=== PATIENT | male | born 1945 | race Caucasian/White ===

== ENCOUNTER 2020-03-17 21:35 | Inpatient (IN) | payer MEDICARE, OTHER ==
[2020-03-18 01:10] VITALS: BP 149/87
[2020-03-18] MEDS ORDERED: Magnesium Hydroxide (MOM) 30 mL UDC PO PRN (01:12)
[2020-03-18] MEDS ORDERED: Maalox 30 mL Cup PO PRN (01:12)
--- NOTE | 2020-03-18 07:57 | Psychiatric Evaluation ---
DATE OF SERVICE: PSYCHIATRIC INITIAL EVALUATION AND MENTAL STATUS EXAM AGE: 75. SEX: Male. PHYSICIAN: Dr. Adam. CHIEF COMPLAINT: Confusion. HISTORY OF PRESENT ILLNESS: The patient is a 75-year-old male who was placed on 5150 hold and evaluated in [facility] and then transferred to [place]. Apparently, the patient's daughter said that the patient suffers from Alzheimer disease and he cannot recognize his family. The patient was aggressive. The patient also was walking into traffic in a confused state in a busy street. The patient was also hitting himself. The patient's family was not able to control the patient and the patient was brought into the hospital. Chart reviewed and the patient interviewed. Also discussed the patient's condition with the staff and reviewed records and labs. The patient speaks Haitian. The patient is actively hallucinating and laughing inappropriately and talking to himself. He has been restless and at times seems to be irritable. The patient was also talking to himself during my interview and was not able to answer any of my questions coherently. PAST PSYCHIATRIC HISTORY: The patient has history of dementia. PAST MEDICAL HISTORY: The patient has no major medical problems and not taking any medications for any reason. SOCIAL HISTORY: The patient lives with his family. Daughter is basically taking care of him. No known alcohol or any street drug use. ALLERGIES: No known allergies. MENTAL STATUS EXAMINATION: The patient appears slightly older than his stated age. Anxious. Flat affect. Irritable moods. Easily agitated. The patient is unable to answer any of my questions coherently because of dementia and confusion. The patient did not answer question regarding hallucinations or delusions, but actively responding to stimuli. The patient did not answer question regarding suicide or homicide. The patient is alert, but seems to be disoriented to time, place, person and situation. Impaired immediate, recent and remote memories and he was not able to even saying his date. Poor insight and poor judgment. He does not know why he is in the hospital and he was walking into traffic. ASSESSMENT: PRIMARY DIAGNOSES: Dementia, severe, with psychotic feature and behavioral disturbances. TREATMENT PLAN: We will start the patient on Abilify. We will start individual as well as milieu psychotherapy. We will also monitor psychotropic medications. ESTIMATED LENGTH OF STAY: 5-7 days. PATIENT'S STRENGTHS AND WEAKNESSES: The patient is having supportive family. Weaknesses are his dementia and his inability to care for himself and also his poor judgment and walking into traffic. AFTER DISCHARGE PLANS: The patient most probably will return to his family unless placement will be an issue. Outpatient treatment and followup will continue as an outpatient. [facility]# [id number]
[2020-03-18] MEDS: Multivitamin Tab PO SCH (08:45)
--- NOTE | 2020-03-18 13:49 | History & Physical ---
ADMIT DATE: 03/18/2020 HISTORY OF PRESENT ILLNESS: This is a 75-year-old male with advanced Alzheimer's, who was brought in for agitation. The patient was being verbally abusive. The patient was running on the streets and was a danger to self and others. At this time, the patient denies any nausea, vomiting, abdominal pain, or diarrhea. No rectal bleeding. PAST MEDICAL HISTORY: 1. Kidney cancer. 2. Hypertension. SURGICAL HISTORY: None. MEDICATIONS: List reviewed. ALLERGIES: None. SOCIAL HISTORY: Tobacco, IV drugs, ETOH negative. PHYSICAL EXAMINATION: VITAL SIGNS: Temperature is 97.5, pulse 92, respirations 18, blood pressure 150/97, satting 98% on room air. HEENT: Normocephalic, atraumatic head exam. NECK: Supple. CARDIOVASCULAR: Regular rate and rhythm. LUNGS: Decreased breath sounds. ABDOMEN: Soft, nontender. EXTREMITIES: No edema, cyanosis or clubbing. NEUROLOGIC: Cranial nerve exam grossly intact, although the patient was very difficult in terms of cooperation. ASSESSMENT AND PLAN: 1. Kidney cancer. 2. Hypertension. 3. Alzheimer's. The patient will be medically managed along with the psychiatrist. We will get a COVID-19 test to rule out COVID. The patient will get CBC, CMP, TSH, B12. JOB# [id number]
[2020-03-18 15:53] LABS: EOSINOPHILS % (AUTO) 0.4 % (0-4); HEMATOCRIT 42.1 % (36-54); HEMOGLOBIN 13.9 g/dL (14.0-18.0); LYMPHOCYTES % (AUTO) 22.4 % (20.5-51.5); MEAN CORPUSCULAR HEMOGLOBIN 34 pg (27-31); MEAN CORPUSCULAR HGB CONC 33 % (32-36); MEAN CORPUSCULAR VOLUME 103 fL (79.0-98.0); MONOCYTES % (AUTO) 5.1 % (1.7-9.3); PLATELET COUNT 133 K/uL (130-430); RED BLOOD COUNT 4.08 MIL/uL (4.2-6.2); RED CELL DISTRIBUTION WIDTH 12.6 % (9.0-15.0); WHITE BLOOD COUNT 6.2 K/uL (4.8-10.8)
[2020-03-18 15:54] LABS: % NEUTROPHILS 71.4 % (40-70); BASOPHILS % (AUTO) 0.7 % (0.0-2.0); LYMPHOCYTES # (AUTO) 1.4 K/uL (1.0-5.5); MONOCYTES # (AUTO) 0.4 K/uL (0.0-1.0); NEUTROPHILS # (AUTO) 4.4 K/uL (1.8-7.7)
[2020-03-18 16:46] LABS: CHOLESTEROL 159 mg/dL (<200); LDL CHOLESTEROL 95 mg/dL (0-129); TRIGLYCERIDES 39 mg/dL (30-150)
--- NOTE | 2020-03-19 07:05 | Progress Notes ---
DATE: 03/19/2020 SUBJECTIVE: A 75-year-old male placed on a hold, coming from [place]. The patient's daughter said that he suffers from Alzheimer disease, cannot recognize his family, aggressive, walking into traffic, confused, was also hitting himself. On [id number], the patient is confused, not making much sense, does not know why he is here or the year or the month. He tells me he is comfortable and then starts laughing to himself, acting strange, making some odd comments. Slept comfortably for about 5 hours, preoccupied, requiring some prompting and encouragement when providing care, AO to name only, withdrawn. Medications were reviewed. Labs were reviewed. Vitals were reviewed. In terms of his medical history, he has a history of right kidney cancer over 5 years ago. 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 He also has Alzheimer's disease. Takes Ativan at home. ASSESSMENT: A 75-year-old male with ongoing safety concerns, concerns he may strike out at others, wander away. PLAN: We will continue to monitor. Continue dosing of Abilify, Ativan, ongoing symptoms, safety concerns. JOB# [id number]
[2020-03-19] MEDS: Multivitamin Tab PO SCH (08:51)
--- NOTE | 2020-03-20 07:04 | Progress Notes ---
DATE: 03/20/2020 SUBJECTIVE: A 75-year-old male placed on a hold, coming in from [place]. The patient is with Alzheimer dementia, unable to recognize family, more aggressive, confused. He was apparently also hitting himself. On exam, the patient is pretty confused on exam when I attempt to speak with him, but he only can tell me his name, not really making much sense, making some odd comments, laughing to self, seems preoccupied. Otherwise, he is calm this morning per staff. AO to name only walking back and forth in the room, able to make some of his basic needs known, confused, forgetful, impulsive, unpredictable. Following simple commands. Medications reviewed. Labs reviewed. Vitals were reviewed. ASSESSMENT: A 75-year-old male who remains impulsive, unpredictable, confused, but has been generally calm over the past 24 hours. Currently on a small dose of Abilify. We will also recommend adding Namenda to his regimen. JOB# [id number]
[2020-03-20] MEDS: Multivitamin Tab PO SCH (08:44)
[2020-03-21] MEDS: Multivitamin Tab PO SCH (08:26)
--- NOTE | 2020-03-21 17:31 | Internal Medicine Prog Note ---
Internal Medicine Subjective - Subjective Service Date: 03/21/20 (no fevers, no cough, no sob) Patient seen and examined:: without staff Patient is:: awake Per staff patient has:: no adverse event, no episodes of fall Internal Medicine Objective - Results Result Diagrams: 03/18/20 13:25 Recent Labs: Laboratory Last Values WBC 6.2 K/uL (4.8-10.8) 03/18/20 13:25 RBC 4.08 MIL/uL (4.2-6.2) L 03/18/20 13:25 Hgb 13.9 g/dL (14.0-18.0) L 03/18/20 13:25 Hct 42.1 % (36-54) 03/18/20 13:25 MCV 103 fL (79.0-98.0) H 03/18/20 13:25 MCH 34 pg (27-31) H 03/18/20 13:25 MCHC 33 % (32-36) 03/18/20 13:25 RDW 12.6 % (9.0-15.0) 03/18/20 13:25 Plt Count 133 K/uL (130-430) 03/18/20 13:25 MPV 9.4 fl (7.4-10.4) 03/18/20 13:25 Neut % (Auto) 71.4 % (40-70) H 03/18/20 13:25 Lymph % (Auto) 22.4 % (20.5-51.5) 03/18/20 13:25 [place] % (Auto) 5.1 % (1.7-9.3) 03/18/20 13:25 Eos % (Auto) 0.4 % (0-4) 03/18/20 13:25 Baso % (Auto) 0.7 % (0.0-2.0) 03/18/20 13:25 Neut # (Auto) 4.4 K/uL (1.8-7.7) 03/18/20 13:25 Lymph # (Auto) 1.4 K/uL (1.0-5.5) 03/18/20 13:25 [place] # (Auto) 0.4 K/uL (0.0-1.0) 03/18/20 13:25 Eos # (Auto) 0.0 K/uL (0.0-0.4) 03/18/20 13:25 Baso # (Auto) 0.0 K/uL (0.0-0.2) 03/18/20 13:25 Triglycerides 39 mg/dL (30-150) 03/18/20 13:25 Cholesterol 159 mg/dL (<200) 03/18/20 13:25 LDL Cholesterol 95 mg/dL (0-129) 03/18/20 13:25 HDL Cholesterol 57 mg/dL (>45) 03/18/20 13:25 TSH 1.07 uIU/ml (0.34-5.60) 03/18/20 13:25 Coronavirus (PCR) Negative (Negative) 03/18/20 10:00 - Physical Exam Vitals and I&O: Vital Signs Temp 99 F 03/21/20 15:28 Pulse 64 03/21/20 15:28 Resp 18 03/21/20 15:28 BP 103/69 03/21/20 15:28 Pulse Ox 100 03/21/20 15:28 Intake & Output 03/20/20 03/21/20 03/21/20 18:59 06:59 18:59 Intake Total 900 680 Balance 900 680 Intake: Oral 900 680 Other: # Voids 4 2 # Bowel Movements 1 0 Active Medications: Current Medications Acetaminophen (Tylenol) 650 mg PO Q4H PRN PRN Reason: Pain (Mild 1-3) Stop: 05/17/20 01:11 Last Admin: 03/20/20 20:46 Dose: 650 mg Acetaminophen (Tylenol) 650 mg PO Q4H PRN PRN Reason: temp above 100 Stop: 05/17/20 01:21 Last Admin: 03/19/20 21:11 Dose: 650 mg Al Hydrox/Mg Hydrox/Simethicone (Maalox) 30 ml PO Q4HR PRN PRN Reason: GI DISTRESS Stop: 05/17/20 01:11 Aripiprazole (Abilify) 2 mg PO DAILY STACI; Protocol Stop: 05/17/20 09:59 Last Admin: 03/21/20 08:26 Dose: 2 mg Lorazepam (Ativan) 0.5 mg PO Q4HR PRN; Protocol PRN Reason: Anxiety Stop: 04/17/20 01:11 Last Admin: 03/21/20 08:26 Dose: 0.5 mg Magnesium Hydroxide (Milk Of Magnesia) 30 ml PO HS PRN PRN Reason: Constipation Memantine (Namenda) 5 mg PO DAILY [facility] Stop: 05/19/20 08:59 Last Admin: 03/21/20 08:26 Dose: 5 mg Multivitamins/Vitamin C (Theragran) 1 tab PO DAILY STACI Stop: 05/17/20 08:59 Last Admin: 03/21/20 08:26 Dose: 1 tab General: weak HEENT: NC/AT, PERRLA Neck: Supple Lungs: CTAB Cardiovascular: RRR, Normal S1, Normal S2 Abdomen: soft Extremities: clear Internal Medicine Assmt/Plan - Assessment Assessment: 1 HTN 2. Kidney cancer - Plan Plan: check covid-19 continue dementia meds d/w r.n. reviewed complete medical records
--- NOTE | 2020-03-22 00:06 | Progress Notes ---
DATE: 03/21/2020 SUBJECTIVE: Chart reviewed and the patient interviewed. Also discussed the patient's condition with the staff and reviewed records and labs. The patient is still confused. The patient also is still restless and seems to be preoccupied. The patient also is oriented only to his name. He also is still anxious and needs lots of redirections. He also gets agitated and aggressive when staff trying to help him with his ADLs. Otherwise, the patient is compliant with taking Abilify 2 mg every day with no side effects. ASSESSMENT: The patient is still agitated and still needs close monitoring. TREATMENT PLAN GOALS: COVID test came back negative. We will continue Abilify and the Namenda. Also, we will continue to work on his irritability and his anger and mood swings and continue to follow up. JOB# [id number]
[2020-03-22] MEDS: Multivitamin Tab PO SCH (08:21)
--- NOTE | 2020-03-22 10:55 | Progress Notes ---
DATE: PSYCHIATRIC PROGRESS NOTE SUBJECTIVE: Chart reviewed and the patient interviewed. Also discussed the patient's condition with the staff and reviewed records and labs. The patient continued to be confused and anxious. The patient also is still restless and still needs lots of redirections. The patient also still have difficulty with personal hygiene and getting agitated and aggressive when staff tries to help him with his ADLs. Otherwise, the patient is compliant with taking his medications with no side effects of medications. ASSESSMENT: The patient is still agitated and is still psychotic. TREATMENT PLAN: Continue to monitor his behavior and his condition closely. Also, continue to work on his impulse control and his irritability and continue to follow up. JOB# [id number]
--- NOTE | 2020-03-22 14:45 | Internal Medicine Prog Note ---
Internal Medicine Subjective - Subjective Service Date: 03/22/20 Patient seen and examined:: without staff (no fevers no cough no chest pain no sob) Patient is:: awake Per staff patient has:: no adverse event, no episodes of fall Internal Medicine Objective - Results Result Diagrams: 03/18/20 13:25 Recent Labs: Laboratory Last Values WBC 6.2 K/uL (4.8-10.8) 03/18/20 13:25 RBC 4.08 MIL/uL (4.2-6.2) L 03/18/20 13:25 Hgb 13.9 g/dL (14.0-18.0) L 03/18/20 13:25 Hct 42.1 % (36-54) 03/18/20 13:25 MCV 103 fL (79.0-98.0) H 03/18/20 13:25 MCH 34 pg (27-31) H 03/18/20 13:25 MCHC 33 % (32-36) 03/18/20 13:25 RDW 12.6 % (9.0-15.0) 03/18/20 13:25 Plt Count 133 K/uL (130-430) 03/18/20 13:25 MPV 9.4 fl (7.4-10.4) 03/18/20 13:25 Neut % (Auto) 71.4 % (40-70) H 03/18/20 13:25 Lymph % (Auto) 22.4 % (20.5-51.5) 03/18/20 13:25 [place] % (Auto) 5.1 % (1.7-9.3) 03/18/20 13:25 Eos % (Auto) 0.4 % (0-4) 03/18/20 13:25 Baso % (Auto) 0.7 % (0.0-2.0) 03/18/20 13:25 Neut # (Auto) 4.4 K/uL (1.8-7.7) 03/18/20 13:25 Lymph # (Auto) 1.4 K/uL (1.0-5.5) 03/18/20 13:25 [place] # (Auto) 0.4 K/uL (0.0-1.0) 03/18/20 13:25 Eos # (Auto) 0.0 K/uL (0.0-0.4) 03/18/20 13:25 Baso # (Auto) 0.0 K/uL (0.0-0.2) 03/18/20 13:25 Triglycerides 39 mg/dL (30-150) 03/18/20 13:25 Cholesterol 159 mg/dL (<200) 03/18/20 13:25 LDL Cholesterol 95 mg/dL (0-129) 03/18/20 13:25 HDL Cholesterol 57 mg/dL (>45) 03/18/20 13:25 TSH 1.07 uIU/ml (0.34-5.60) 03/18/20 13:25 Coronavirus (PCR) Negative (Negative) 03/18/20 10:00 - Physical Exam Vitals and I&O: Vital Signs Temp 97.7 F 03/22/20 14:00 Pulse 63 03/22/20 14:00 Resp 20 03/22/20 14:00 BP 115/72 03/22/20 14:00 Pulse Ox 97 03/22/20 14:00 Intake & Output 03/21/20 03/22/20 03/22/20 18:59 06:59 18:59 Intake Total 420 Balance 420 Intake: Oral 420 Other: # Voids 3 # Bowel Movements 0 Active Medications: Current Medications Acetaminophen (Tylenol) 650 mg PO Q4H PRN PRN Reason: Pain (Mild 1-3) Stop: 05/17/20 01:11 Last Admin: 03/22/20 14:15 Dose: 650 mg Acetaminophen (Tylenol) 650 mg PO Q4H PRN PRN Reason: temp above 100 Stop: 05/17/20 01:21 Last Admin: 03/19/20 21:11 Dose: 650 mg Al Hydrox/Mg Hydrox/Simethicone (Maalox) 30 ml PO Q4HR PRN PRN Reason: GI DISTRESS Stop: 05/17/20 01:11 Aripiprazole (Abilify) 2 mg PO DAILY STACI; Protocol Stop: 05/17/20 09:59 Last Admin: 03/22/20 08:21 Dose: 2 mg Lorazepam (Ativan) 0.5 mg PO Q4HR PRN; Protocol PRN Reason: Anxiety Stop: 04/17/20 01:11 Last Admin: 03/22/20 14:14 Dose: 0.5 mg Magnesium Hydroxide (Milk Of Magnesia) 30 ml PO HS PRN PRN Reason: Constipation Memantine (Namenda) 5 mg PO DAILY STACI Stop: 05/19/20 08:59 Last Admin: 03/22/20 08:21 Dose: 5 mg Multivitamins/Vitamin C (Theragran) 1 tab PO DAILY STACI Stop: 05/17/20 08:59 Last Admin: 03/22/20 08:21 Dose: 1 tab General: weak HEENT: NC/AT, PERRLA Neck: Supple Lungs: CTAB Cardiovascular: RRR, Normal S1, Normal S2 Abdomen: soft Extremities: clear Neurological: no change Internal Medicine Assmt/Plan - Assessment Assessment: 1 HTN 2. Kidney cancer - Plan Plan: await covid results continue dementia meds d/w r.n. reviewed complete medical records Nutritional Asmnt/Malnutr-PDOC - Dietary Evaluation Malnutrition Findings (Please click <Entered> for more info): Nutritional Asmnt/Malnutrition Start: 03/22/20 12: 56 Text: Status: Complete Freq: Protocol: Document 03/22/20 12:56 DENZEL (Rec: 03/22/20 13:00 DENZEL [id number]) Nutritional Asmnt/Malnutrition Patient General Information Nutritional Screening Moderate Risk Diagnosis Psychosis Pertinent Medical Hx/Surgical Hx Kidney cancer, HTN, Alzheimer s, Dementia Subjective Information Pt is a 75-year-old male admitted on 03/17 d/t agitation . Pt is eating an estimated 35 % of meals Per Meal/Nutrition Activity Record. Dietary is currently providing an estimated 2681 kcals and 124 gm Pro, per Pt PO intake this is providing an estimated 938 kcals and 43gm Pro to meet 61% kcal and 35% Pro needs. Per Meal/Nutrition Activity Record , pt. refused breakfast and lunch on 03/21. Pt. is eating 75% or less of meals and eats 50-100% of snacks. Adding Ensure Enlive BID to add calories and protein until pt. is meeting estimated nutritional needs. Anthropometrics HT: 510 WT: 135 LB (61.63 kg) BMI: 19.37 (Normal) GI/ Skin Integrity GI: WNL, Soft, Non-tender BM: 03/20 x1 I/O: 420/Not Noted Skin: Small superficial abrasion to Lt knee Jean Paul: 18 Diet Order: Regular Estimated Energy Needs: ( Geriatric, CBW) 8057-5919 kcals (25-30 kcals/ kg) 65-75 g Pro (1.0-1.2 g/kg) 2771-5822 ml (25-30 ml/kg) Current Diet Order/ Nutrition Support Regular Pertinent Medications Maalox (PRN), MOM (PRN), Theragran Pertinent Labs 03/18: Hgb 13.9 Nutritional Hx/Data Height 1.78 m Height (Calculated Centimeters) 177.8 Current Weight (lbs) 61.235 kg Weight (Calculated Kilograms) 61.2 Weight (Calculated Grams) 22224.0 [place] Body Weight 166 LB (75.45kg) % [place] Body Weight 81 Body Mass Index (BMI) 19.3 Weight Status Approriate GI Symptoms GI Symptoms None Last BM 03/20 x1 Skin Integrity/Comment: Small superficial abrasion to Lt knee Jean Paul: 18 Current %PO Poor (25-49%) Estimated Nutritional Goals BEE in Kcals: Using Current wt Calories/Kcals/Kg 25-30 Kcals Calculated 8361-0260 Protein: Using Current wt Protein g/k.0-1.2 Protein Calculated 65-75 Fluid: ml 1834-9811 ml (25-30 ml/kg) Nutritional Problem 1. Problem Problem Inadequate oral intake Etiology r/t Alzheimers/Dementia causing confusion Signs/Symptoms: aeb pt. eating an estimated 35 % of meals with refusal of meals per Meal/Nutrition Activity Record and [employer] report . Malnutrition Related to Morbid Obesity Malnutrition related to morbid obesity No Intervention/Recommendation Comments 1. Continue regular diet as tolerated. 2. Add Ensure Enlive BID. Expected Outcomes/Goals Expected Outcomes/Goals 1. PO intake to meet >75% of estimated nutritional needs. 2. Monitor PO intake, wt, nutrition related labs, and skin integrity to trend WNL. 3. F/U as moderate risk in 3-5 days, 03/25-03/27.
--- NOTE | 2020-03-23 06:42 | Progress Notes ---
DATE: SUBJECTIVE: Chart was reviewed and the patient interviewed. Also discussed the patient's condition with the staff and reviewed records and labs. The patient remains in irritable mood. The patient also is still agitated and is still aggressive at times. The patient also is interacting more with peers and with others, but still needs lots of redirections. The patient also is still in angry mood and confused. Otherwise, the patient is compliant with taking his medications with no side effects of medications. ASSESSMENT: The patient is still agitated and aggressive and needs close monitoring. TREATMENT PLAN: Continue to monitor his behavior and his condition closely. Also, we will increase Abilify to 5 mg every day and we will increase Namenda to 5 mg twice a day. Also, continue to work on behavior modification and on his irritability and his agitation and impulse control. JOB# [id number]
[2020-03-23] MEDS: Multivitamin Tab PO SCH (08:16)
[2020-03-23 10:45] LABS: A1C 5.2
--- NOTE | 2020-03-23 14:16 | Internal Medicine Prog Note ---
Internal Medicine Subjective - Subjective Service Date: 03/23/20 Patient seen and examined:: without staff Patient is:: awake Per staff patient has:: no adverse event, no episodes of fall Internal Medicine Objective - Results Result Diagrams: 03/18/20 13:25 Recent Labs: Laboratory Last Values WBC 6.2 K/uL (4.8-10.8) 03/18/20 13:25 RBC 4.08 MIL/uL (4.2-6.2) L 03/18/20 13:25 Hgb 13.9 g/dL (14.0-18.0) L 03/18/20 13:25 Hct 42.1 % (36-54) 03/18/20 13:25 MCV 103 fL (79.0-98.0) H 03/18/20 13:25 MCH 34 pg (27-31) H 03/18/20 13:25 MCHC 33 % (32-36) 03/18/20 13:25 RDW 12.6 % (9.0-15.0) 03/18/20 13:25 Plt Count 133 K/uL (130-430) 03/18/20 13:25 MPV 9.4 fl (7.4-10.4) 03/18/20 13:25 Neut % (Auto) 71.4 % (40-70) H 03/18/20 13:25 Lymph % (Auto) 22.4 % (20.5-51.5) 03/18/20 13:25 [place] % (Auto) 5.1 % (1.7-9.3) 03/18/20 13:25 Eos % (Auto) 0.4 % (0-4) 03/18/20 13:25 Baso % (Auto) 0.7 % (0.0-2.0) 03/18/20 13:25 Neut # (Auto) 4.4 K/uL (1.8-7.7) 03/18/20 13:25 Lymph # (Auto) 1.4 K/uL (1.0-5.5) 03/18/20 13:25 [place] # (Auto) 0.4 K/uL (0.0-1.0) 03/18/20 13:25 Eos # (Auto) 0.0 K/uL (0.0-0.4) 03/18/20 13:25 Baso # (Auto) 0.0 K/uL (0.0-0.2) 03/18/20 13:25 Triglycerides 39 mg/dL (30-150) 03/18/20 13:25 Cholesterol 159 mg/dL (<200) 03/18/20 13:25 LDL Cholesterol 95 mg/dL (0-129) 03/18/20 13:25 HDL Cholesterol 57 mg/dL (>45) 03/18/20 13:25 Vitamin B12 182 03/18/20 13:25 TSH 1.07 uIU/ml (0.34-5.60) 03/18/20 13:25 Coronavirus (PCR) Negative (Negative) 03/18/20 10:00 - Physical Exam Vitals and I&O: Vital Signs Temp 98.1 F 03/23/20 05:36 Pulse 56 03/23/20 05:36 Resp 19 03/23/20 05:36 BP 145/89 03/23/20 05:36 Pulse Ox 98 03/23/20 05:36 Intake & Output 03/22/20 03/23/20 03/23/20 18:59 06:59 18:59 Intake Total 800 Balance 800 Intake: Oral 800 Other: # Voids 3 3 # Bowel Movements 0 Active Medications: Current Medications Acetaminophen (Tylenol) 650 mg PO Q4H PRN PRN Reason: Pain (Mild 1-3) Stop: 05/17/20 01:11 Last Admin: 03/22/20 14:15 Dose: 650 mg Acetaminophen (Tylenol) 650 mg PO Q4H PRN PRN Reason: temp above 100 Stop: 05/17/20 01:21 Last Admin: 03/19/20 21:11 Dose: 650 mg Al Hydrox/Mg Hydrox/Simethicone (Maalox) 30 ml PO Q4HR PRN PRN Reason: GI DISTRESS Stop: 05/17/20 01:11 Aripiprazole (Abilify) 5 mg PO DAILY STACI; Protocol Stop: 05/22/20 08:59 Last Admin: 03/23/20 08:15 Dose: 5 mg Lorazepam (Ativan) 0.5 mg PO Q4HR PRN; Protocol PRN Reason: Anxiety Stop: 04/17/20 01:11 Last Admin: 03/23/20 08:16 Dose: 0.5 mg Magnesium Hydroxide (Milk Of Magnesia) 30 ml PO HS PRN PRN Reason: Constipation Memantine (Namenda) 5 mg PO BID STACI Stop: 05/22/20 08:59 Last Admin: 03/23/20 08:16 Dose: 5 mg Multivitamins/Vitamin C (Theragran) 1 tab PO DAILY STACI Stop: 05/17/20 08:59 Last Admin: 03/23/20 08:16 Dose: 1 tab General: weak HEENT: NC/AT, PERRLA Neck: Supple Lungs: CTAB Cardiovascular: RRR, Normal S1, Normal S2 Abdomen: soft Extremities: clear Neurological: no change Internal Medicine Assmt/Plan - Assessment Assessment: 1 HTN 2. Kidney cancer - Plan Plan: await covid results continue dementia meds d/w r.n. reviewed complete medical records Nutritional Asmnt/Malnutr-PDOC - Dietary Evaluation Malnutrition Findings (Please click <Entered> for more info): Nutritional Asmnt/Malnutrition Start: 03/22/20 12: 56 Text: Status: Complete Freq: Protocol: Document 03/22/20 12:56 DENZEL (Rec: 03/22/20 13:00 DENZEL [id number]) Nutritional Asmnt/Malnutrition Patient General Information Nutritional Screening Moderate Risk Diagnosis Psychosis Pertinent Medical Hx/Surgical Hx Kidney cancer, HTN, Alzheimer s, Dementia Subjective Information Pt is a 75-year-old male admitted on 03/17 d/t agitation . Pt is eating an estimated 35 % of meals Per Meal/Nutrition Activity Record. Dietary is currently providing an estimated 2681 kcals and 124 gm Pro, per Pt PO intake this is providing an estimated 938 kcals and 43gm Pro to meet 61% kcal and 35% Pro needs. Per Meal/Nutrition Activity Record , pt. refused breakfast and lunch on 03/21. Pt. is eating 75% or less of meals and eats 50-100% of snacks. Adding Ensure Enlive BID to add calories and protein until pt. is meeting estimated nutritional needs. Anthropometrics HT: 510 WT: 135 LB (61.63 kg) BMI: 19.37 (Normal) GI/ Skin Integrity GI: WNL, Soft, Non-tender BM: 03/20 x1 I/O: 420/Not Noted Skin: Small superficial abrasion to Lt knee Jean Paul: 18 Diet Order: Regular Estimated Energy Needs: ( Geriatric, CBW) 7905-2591 kcals (25-30 kcals/ kg) 65-75 g Pro (1.0-1.2 g/kg) 9042-3464 ml (25-30 ml/kg) Current Diet Order/ Nutrition Support Regular Pertinent Medications Maalox (PRN), MOM (PRN), Theragran Pertinent Labs 03/18: Hgb 13.9 Nutritional Hx/Data Height 1.78 m Height (Calculated Centimeters) 177.8 Current Weight (lbs) 61.235 kg Weight (Calculated Kilograms) 61.2 Weight (Calculated Grams) 64569.0 [place] Body Weight 166 LB (75.45kg) % [place] Body Weight 81 Body Mass Index (BMI) 19.3 Weight Status Approriate GI Symptoms GI Symptoms None Last BM 03/20 x1 Skin Integrity/Comment: Small superficial abrasion to Lt knee Jean Paul: 18 Current %PO Poor (25-49%) Estimated Nutritional Goals BEE in Kcals: Using Current wt Calories/Kcals/Kg 25-30 Kcals Calculated 9779-1475 Protein: Using Current wt Protein g/k.0-1.2 Protein Calculated 65-75 Fluid: ml 3046-6152 ml (25-30 ml/kg) Nutritional Problem 1. Problem Problem Inadequate oral intake Etiology r/t Alzheimers/Dementia causing confusion Signs/Symptoms: aeb pt. eating an estimated 35 % of meals with refusal of meals per Meal/Nutrition Activity Record and ELECTRONIC SYSTEMS TECHNICIAN report . Malnutrition Related to Morbid Obesity Malnutrition related to morbid obesity No Intervention/Recommendation Comments 1. Continue regular diet as tolerated. 2. Add Ensure Enlive BID. Expected Outcomes/Goals Expected Outcomes/Goals 1. PO intake to meet >75% of estimated nutritional needs. 2. Monitor PO intake, wt, nutrition related labs, and skin integrity to trend WNL. 3. F/U as moderate risk in 3-5 days, 03/25-03/27.
[2020-03-24] MEDS: Multivitamin Tab PO SCH (08:45)
--- NOTE | 2020-03-24 13:41 | Internal Medicine Prog Note ---
Internal Medicine Subjective - Subjective Service Date: 03/24/20 Patient seen and examined:: without staff Patient is:: awake Per staff patient has:: no adverse event, no episodes of fall Internal Medicine Objective - Results Result Diagrams: 03/18/20 13:25 Recent Labs: Laboratory Last Values WBC 6.2 K/uL (4.8-10.8) 03/18/20 13:25 RBC 4.08 MIL/uL (4.2-6.2) L 03/18/20 13:25 Hgb 13.9 g/dL (14.0-18.0) L 03/18/20 13:25 Hct 42.1 % (36-54) 03/18/20 13:25 MCV 103 fL (79.0-98.0) H 03/18/20 13:25 MCH 34 pg (27-31) H 03/18/20 13:25 MCHC 33 % (32-36) 03/18/20 13:25 RDW 12.6 % (9.0-15.0) 03/18/20 13:25 Plt Count 133 K/uL (130-430) 03/18/20 13:25 MPV 9.4 fl (7.4-10.4) 03/18/20 13:25 Neut % (Auto) 71.4 % (40-70) H 03/18/20 13:25 Lymph % (Auto) 22.4 % (20.5-51.5) 03/18/20 13:25 [place] % (Auto) 5.1 % (1.7-9.3) 03/18/20 13:25 Eos % (Auto) 0.4 % (0-4) 03/18/20 13:25 Baso % (Auto) 0.7 % (0.0-2.0) 03/18/20 13:25 Neut # (Auto) 4.4 K/uL (1.8-7.7) 03/18/20 13:25 Lymph # (Auto) 1.4 K/uL (1.0-5.5) 03/18/20 13:25 [place] # (Auto) 0.4 K/uL (0.0-1.0) 03/18/20 13:25 Eos # (Auto) 0.0 K/uL (0.0-0.4) 03/18/20 13:25 Baso # (Auto) 0.0 K/uL (0.0-0.2) 03/18/20 13:25 Triglycerides 39 mg/dL (30-150) 03/18/20 13:25 Cholesterol 159 mg/dL (<200) 03/18/20 13:25 LDL Cholesterol 95 mg/dL (0-129) 03/18/20 13:25 HDL Cholesterol 57 mg/dL (>45) 03/18/20 13:25 Vitamin B12 182 03/18/20 13:25 TSH 1.07 uIU/ml (0.34-5.60) 03/18/20 13:25 Coronavirus (PCR) Negative (Negative) 03/18/20 10:00 - Physical Exam Vitals and I&O: Vital Signs Temp 97.5 F 03/24/20 06:31 Pulse 72 03/24/20 06:31 Resp 18 03/24/20 06:31 BP 120/85 03/24/20 06:31 Pulse Ox 99 03/24/20 06:31 Intake & Output 03/23/20 03/24/20 03/24/20 18:59 06:59 18:59 Intake Total 800 120 Balance 800 120 Intake: Oral 800 120 Other: # Voids 3 3 # Bowel Movements 0 Active Medications: Current Medications Acetaminophen (Tylenol) 650 mg PO Q4H PRN PRN Reason: Pain (Mild 1-3) Stop: 05/17/20 01:11 Last Admin: 03/22/20 14:15 Dose: 650 mg Acetaminophen (Tylenol) 650 mg PO Q4H PRN PRN Reason: temp above 100 Stop: 05/17/20 01:21 Last Admin: 03/19/20 21:11 Dose: 650 mg Al Hydrox/Mg Hydrox/Simethicone (Maalox) 30 ml PO Q4HR PRN PRN Reason: GI DISTRESS Stop: 05/17/20 01:11 Aripiprazole (Abilify) 5 mg PO DAILY STACI; Protocol Stop: 05/22/20 08:59 Last Admin: 03/24/20 08:44 Dose: 5 mg Lorazepam (Ativan) 0.5 mg PO Q4HR PRN; Protocol PRN Reason: Anxiety Stop: 04/17/20 01:11 Last Admin: 03/24/20 10:59 Dose: 0.5 mg Magnesium Hydroxide (Milk Of Magnesia) 30 ml PO HS PRN PRN Reason: Constipation Memantine (Namenda) 5 mg PO BID STACI Stop: 05/22/20 08:59 Last Admin: 03/24/20 08:45 Dose: 5 mg Multivitamins/Vitamin C (Theragran) 1 tab PO DAILY STACI Stop: 05/17/20 08:59 Last Admin: 03/24/20 08:45 Dose: 1 tab General: weak HEENT: NC/AT, PERRLA Neck: Supple Lungs: CTAB Cardiovascular: RRR, Normal S1, Normal S2 Abdomen: soft Extremities: clear Neurological: no change Internal Medicine Assmt/Plan - Assessment Assessment: 1 HTN 2. Kidney cancer - Plan Plan: continue dementia meds d/w r.n. reviewed complete medical records Nutritional Asmnt/Malnutr-PDOC - Dietary Evaluation Malnutrition Findings (Please click <Entered> for more info): Nutritional Asmnt/Malnutrition Start: 03/22/20 12: 56 Text: Status: Complete Freq: Protocol: Document 03/22/20 12:56 DENZEL (Rec: 03/22/20 13:00 DENZEL [id number]) Nutritional Asmnt/Malnutrition Patient General Information Nutritional Screening Moderate Risk Diagnosis Psychosis Pertinent Medical Hx/Surgical Hx Kidney cancer, HTN, Alzheimer s, Dementia Subjective Information Pt is a 75-year-old male admitted on 03/17 d/t agitation . Pt is eating an estimated 35 % of meals Per Meal/Nutrition Activity Record. Dietary is currently providing an estimated 2681 kcals and 124 gm Pro, per Pt PO intake this is providing an estimated 938 kcals and 43gm Pro to meet 61% kcal and 35% Pro needs. Per Meal/Nutrition Activity Record , pt. refused breakfast and lunch on 03/21. Pt. is eating 75% or less of meals and eats 50-100% of snacks. Adding Ensure Enlive BID to add calories and protein until pt. is meeting estimated nutritional needs. Anthropometrics HT: 510 WT: 135 LB (61.63 kg) BMI: 19.37 (Normal) GI/ Skin Integrity GI: WNL, Soft, Non-tender BM: 03/20 x1 I/O: 420/Not Noted Skin: Small superficial abrasion to Lt knee Jean Paul: 18 Diet Order: Regular Estimated Energy Needs: ( Geriatric, CBW) 9006-3015 kcals (25-30 kcals/ kg) 65-75 g Pro (1.0-1.2 g/kg) 4268-1157 ml (25-30 ml/kg) Current Diet Order/ Nutrition Support Regular Pertinent Medications Maalox (PRN), MOM (PRN), Theragran Pertinent Labs 03/18: Hgb 13.9 Nutritional Hx/Data Height 1.78 m Height (Calculated Centimeters) 177.8 Current Weight (lbs) 61.235 kg Weight (Calculated Kilograms) 61.2 Weight (Calculated Grams) 53539.0 [place] Body Weight 166 LB (75.45kg) % [place] Body Weight 81 Body Mass Index (BMI) 19.3 Weight Status Approriate GI Symptoms GI Symptoms None Last BM 03/20 x1 Skin Integrity/Comment: Small superficial abrasion to Lt knee Jean Paul: 18 Current %PO Poor (25-49%) Estimated Nutritional Goals BEE in Kcals: Using Current wt Calories/Kcals/Kg 25-30 Kcals Calculated 5836-7737 Protein: Using Current wt Protein g/k.0-1.2 Protein Calculated 65-75 Fluid: ml 8614-7125 ml (25-30 ml/kg) Nutritional Problem 1. Problem Problem Inadequate oral intake Etiology r/t Alzheimers/Dementia causing confusion Signs/Symptoms: aeb pt. eating an estimated 35 % of meals with refusal of meals per Meal/Nutrition Activity Record and COMPUTER FORENSICS ANALYST report . Malnutrition Related to Morbid Obesity Malnutrition related to morbid obesity No Intervention/Recommendation Comments 1. Continue regular diet as tolerated. 2. Add Ensure Enlive BID. Expected Outcomes/Goals Expected Outcomes/Goals 1. PO intake to meet >75% of estimated nutritional needs. 2. Monitor PO intake, wt, nutrition related labs, and skin integrity to trend WNL. 3. F/U as moderate risk in 3-5 days, 03/25-03/27.
--- NOTE | 2020-03-24 16:21 | Progress Notes ---
DATE: SUBJECTIVE: Chart reviewed and the patient interviewed. Also discussed the patient's condition with the staff and reviewed records and labs. The patient is still depressed and anxious. The patient also still has episodes of anger and irritability. The patient wants to be left alone most of the time. He is interacting minimally with others. Otherwise, the patient is compliant with taking medications and no side effects of Abilify or Namenda. ASSESSMENT: The patient still needs close monitoring. TREATMENT PLAN: Continue to monitor his behavior and his condition closely. Also, continue to work on his confusion and irritability. Also, adjusting psychotropic medications and work on discharge plans and on placement issue. JOB# [id number]
[2020-03-25] MEDS: Multivitamin Tab PO SCH (10:46)
--- NOTE | 2020-03-25 15:07 | Internal Medicine Prog Note ---
Internal Medicine Subjective - Subjective Service Date: 03/25/20 Patient seen and examined:: without staff Patient is:: awake Per staff patient has:: no adverse event, no episodes of fall Internal Medicine Objective - Results Result Diagrams: 03/18/20 13:25 Recent Labs: Laboratory Last Values WBC 6.2 K/uL (4.8-10.8) 03/18/20 13:25 RBC 4.08 MIL/uL (4.2-6.2) L 03/18/20 13:25 Hgb 13.9 g/dL (14.0-18.0) L 03/18/20 13:25 Hct 42.1 % (36-54) 03/18/20 13:25 MCV 103 fL (79.0-98.0) H 03/18/20 13:25 MCH 34 pg (27-31) H 03/18/20 13:25 MCHC 33 % (32-36) 03/18/20 13:25 RDW 12.6 % (9.0-15.0) 03/18/20 13:25 Plt Count 133 K/uL (130-430) 03/18/20 13:25 MPV 9.4 fl (7.4-10.4) 03/18/20 13:25 Neut % (Auto) 71.4 % (40-70) H 03/18/20 13:25 Lymph % (Auto) 22.4 % (20.5-51.5) 03/18/20 13:25 [place] % (Auto) 5.1 % (1.7-9.3) 03/18/20 13:25 Eos % (Auto) 0.4 % (0-4) 03/18/20 13:25 Baso % (Auto) 0.7 % (0.0-2.0) 03/18/20 13:25 Neut # (Auto) 4.4 K/uL (1.8-7.7) 03/18/20 13:25 Lymph # (Auto) 1.4 K/uL (1.0-5.5) 03/18/20 13:25 [place] # (Auto) 0.4 K/uL (0.0-1.0) 03/18/20 13:25 Eos # (Auto) 0.0 K/uL (0.0-0.4) 03/18/20 13:25 Baso # (Auto) 0.0 K/uL (0.0-0.2) 03/18/20 13:25 Triglycerides 39 mg/dL (30-150) 03/18/20 13:25 Cholesterol 159 mg/dL (<200) 03/18/20 13:25 LDL Cholesterol 95 mg/dL (0-129) 03/18/20 13:25 HDL Cholesterol 57 mg/dL (>45) 03/18/20 13:25 Vitamin B12 182 03/18/20 13:25 TSH 1.07 uIU/ml (0.34-5.60) 03/18/20 13:25 Coronavirus (PCR) Negative (NOT DETECTD) 03/21/20 20:00 - Physical Exam Vitals and I&O: Vital Signs Temp 98.7 F 03/25/20 14:41 Pulse 79 03/25/20 14:41 Resp 20 03/25/20 14:41 BP 149/77 03/25/20 14:41 Pulse Ox 97 03/25/20 14:41 Intake & Output 03/24/20 03/25/20 03/25/20 18:59 06:59 18:59 Intake Total 240 120 Balance 240 120 Intake: Oral 240 120 Other: # Voids 2 3 # Bowel Movements 0 Stool Characteristics Soft Soft Foamy Foamy Brown Brown Active Medications: Current Medications Acetaminophen (Tylenol) 650 mg PO Q4H PRN PRN Reason: Pain (Mild 1-3) Stop: 05/17/20 01:11 Last Admin: 03/22/20 14:15 Dose: 650 mg Acetaminophen (Tylenol) 650 mg PO Q4H PRN PRN Reason: temp above 100 Stop: 05/17/20 01:21 Last Admin: 03/19/20 21:11 Dose: 650 mg Al Hydrox/Mg Hydrox/Simethicone (Maalox) 30 ml PO Q4HR PRN PRN Reason: GI DISTRESS Stop: 05/17/20 01:11 Aripiprazole (Abilify) 5 mg PO DAILY STACI; Protocol Stop: 05/22/20 08:59 Last Admin: 03/25/20 10:46 Dose: 5 mg Lorazepam (Ativan) 0.5 mg PO Q4HR PRN; Protocol PRN Reason: Anxiety Stop: 04/17/20 01:11 Last Admin: 03/24/20 17:01 Dose: 0.5 mg Magnesium Hydroxide (Milk Of Magnesia) 30 ml PO HS PRN PRN Reason: Constipation Memantine (Namenda) 5 mg PO BID STACI Stop: 05/22/20 08:59 Last Admin: 03/25/20 10:46 Dose: 5 mg Multivitamins/Vitamin C (Theragran) 1 tab PO DAILY STACI Stop: 05/17/20 08:59 Last Admin: 03/25/20 10:46 Dose: 1 tab General: weak HEENT: NC/AT, PERRLA Neck: Supple Lungs: CTAB Cardiovascular: RRR, Normal S1, Normal S2 Abdomen: soft Extremities: clear Neurological: no change Internal Medicine Assmt/Plan - Assessment Assessment: 1 HTN 2. Kidney cancer - Plan Plan: continue dementia meds d/w r.n. reviewed complete medical records Nutritional Asmnt/Malnutr-PDOC - Dietary Evaluation Malnutrition Findings (Please click <Entered> for more info): Nutritional Asmnt/Malnutrition Start: 03/22/20 12: 56 Text: Status: Complete Freq: Protocol: Document 03/22/20 12:56 DENZEL (Rec: 03/22/20 13:00 DENZEL [id number]) Nutritional Asmnt/Malnutrition Patient General Information Nutritional Screening Moderate Risk Diagnosis Psychosis Pertinent Medical Hx/Surgical Hx Kidney cancer, HTN, Alzheimer s, Dementia Subjective Information Pt is a 75-year-old male admitted on 03/17 d/t agitation . Pt is eating an estimated 35 % of meals Per Meal/Nutrition Activity Record. Dietary is currently providing an estimated 2681 kcals and 124 gm Pro, per Pt PO intake this is providing an estimated 938 kcals and 43gm Pro to meet 61% kcal and 35% Pro needs. Per Meal/Nutrition Activity Record , pt. refused breakfast and lunch on 03/21. Pt. is eating 75% or less of meals and eats 50-100% of snacks. Adding Ensure Enlive BID to add calories and protein until pt. is meeting estimated nutritional needs. Anthropometrics HT: 510 WT: 135 LB (61.63 kg) BMI: 19.37 (Normal) GI/ Skin Integrity GI: WNL, Soft, Non-tender BM: 03/20 x1 I/O: 420/Not Noted Skin: Small superficial abrasion to Lt knee Jean Paul: 18 Diet Order: Regular Estimated Energy Needs: ( Geriatric, CBW) 7132-8565 kcals (25-30 kcals/ kg) 65-75 g Pro (1.0-1.2 g/kg) 5100-3868 ml (25-30 ml/kg) Current Diet Order/ Nutrition Support Regular Pertinent Medications Maalox (PRN), MOM (PRN), Theragran Pertinent Labs 03/18: Hgb 13.9 Nutritional Hx/Data Height 1.78 m Height (Calculated Centimeters) 177.8 Current Weight (lbs) 61.235 kg Weight (Calculated Kilograms) 61.2 Weight (Calculated Grams) 15781.0 [place] Body Weight 166 LB (75.45kg) % [place] Body Weight 81 Body Mass Index (BMI) 19.3 Weight Status Approriate GI Symptoms GI Symptoms None Last BM 03/20 x1 Skin Integrity/Comment: Small superficial abrasion to Lt knee Jean Paul: 18 Current %PO Poor (25-49%) Estimated Nutritional Goals BEE in Kcals: Using Current wt Calories/Kcals/Kg 25-30 Kcals Calculated 5961-7676 Protein: Using Current wt Protein g/k.0-1.2 Protein Calculated 65-75 Fluid: ml 6736-4693 ml (25-30 ml/kg) Nutritional Problem 1. Problem Problem Inadequate oral intake Etiology r/t Alzheimers/Dementia causing confusion Signs/Symptoms: aeb pt. eating an estimated 35 % of meals with refusal of meals per Meal/Nutrition Activity Record and EXTRAS CASTING DIRECTOR report . Malnutrition Related to Morbid Obesity Malnutrition related to morbid obesity No Intervention/Recommendation Comments 1. Continue regular diet as tolerated. 2. Add Ensure Enlive BID. Expected Outcomes/Goals Expected Outcomes/Goals 1. PO intake to meet >75% of estimated nutritional needs. 2. Monitor PO intake, wt, nutrition related labs, and skin integrity to trend WNL. 3. F/U as moderate risk in 3-5 days, 03/25-03/27.
--- NOTE | 2020-03-26 03:23 | Progress Notes ---
DATE: 03/25/2020 FOLLOWUP PROGRESS NOTE Case was discussed with staff of the patient, reviewed records. Covering for Dr. Adam. This time admitted on 03/17/2020. The patient was sent home back to Dr. Adam, he is from [facility] and transferred to [facility]. The patient suffers from Alzheimer's and cannot recognize his family. The patient was aggressive. The patient is Nepali speaking. The patient continues to be rambling and says to himself. Continues to have episodes of anger, wants to be left alone. Poor interaction with others. Has been compliant with the medication with no side effects. He is being monitored closely. No side effects with the medication, no sedation, no nausea, no extrapyramidal signs, on Abilify 5 mg daily and Namenda 5 mg twice a day. I will continue to work with the patient in group therapy, milieu therapy, and adjust the medications as needed. JOB# [id number] TORI
[2020-03-26] MEDS: Multivitamin Tab PO SCH (09:30)
--- NOTE | 2020-03-27 07:56 | Progress Notes ---
DATE: SUBJECTIVE: The patient was seen, chart reviewed, and discussed with staff. The patient continues to be very confused confabulating answers, sometimes quite aggressive with poor boundaries. The patient was seen entering and exiting other people's rooms and needing constant redirection. Has, however, been compliant with medications. PLAN: The patient continues to be actively psychotic. It appears that he will require inpatient care center and treatment. We will monitor on a daily basis for response to medications and titrate meds as needed. JOB# [id number]
[2020-03-27] MEDS: Multivitamin Tab PO SCH (08:33)
--- NOTE | 2020-03-27 17:43 | Progress Notes ---
DATE: SUBJECTIVE: The patient was seen, chart reviewed, and discussed with staff. The patient continues to be very confused, seen wandering aimlessly in the hallways and often going into other people's rooms and fall on other patients. The patient has not required any p.r.n. medications, as he is ultimately redirectable. He has also been compliant with his medications, denying any undue side effects. PLAN: The patient continues to be very confused and impulsive, so that he will require inpatient care center and treatment. We will monitor on a daily basis for response to medications and titrate medications as needed. JOB# [id number]
[2020-03-28] MEDS: Multivitamin Tab PO SCH (09:35)
--- NOTE | 2020-03-28 18:49 | Internal Medicine Prog Note ---
Internal Medicine Subjective - Subjective Service Date: 03/28/20 Patient seen and examined:: without staff Patient is:: awake Per staff patient has:: no adverse event, no episodes of fall Internal Medicine Objective - Results Result Diagrams: 03/18/20 13:25 Recent Labs: Laboratory Last Values WBC 6.2 K/uL (4.8-10.8) 03/18/20 13:25 RBC 4.08 MIL/uL (4.2-6.2) L 03/18/20 13:25 Hgb 13.9 g/dL (14.0-18.0) L 03/18/20 13:25 Hct 42.1 % (36-54) 03/18/20 13:25 MCV 103 fL (79.0-98.0) H 03/18/20 13:25 MCH 34 pg (27-31) H 03/18/20 13:25 MCHC 33 % (32-36) 03/18/20 13:25 RDW 12.6 % (9.0-15.0) 03/18/20 13:25 Plt Count 133 K/uL (130-430) 03/18/20 13:25 MPV 9.4 fl (7.4-10.4) 03/18/20 13:25 Neut % (Auto) 71.4 % (40-70) H 03/18/20 13:25 Lymph % (Auto) 22.4 % (20.5-51.5) 03/18/20 13:25 [place] % (Auto) 5.1 % (1.7-9.3) 03/18/20 13:25 Eos % (Auto) 0.4 % (0-4) 03/18/20 13:25 Baso % (Auto) 0.7 % (0.0-2.0) 03/18/20 13:25 Neut # (Auto) 4.4 K/uL (1.8-7.7) 03/18/20 13:25 Lymph # (Auto) 1.4 K/uL (1.0-5.5) 03/18/20 13:25 [place] # (Auto) 0.4 K/uL (0.0-1.0) 03/18/20 13:25 Eos # (Auto) 0.0 K/uL (0.0-0.4) 03/18/20 13:25 Baso # (Auto) 0.0 K/uL (0.0-0.2) 03/18/20 13:25 Triglycerides 39 mg/dL (30-150) 03/18/20 13:25 Cholesterol 159 mg/dL (<200) 03/18/20 13:25 LDL Cholesterol 95 mg/dL (0-129) 03/18/20 13:25 HDL Cholesterol 57 mg/dL (>45) 03/18/20 13:25 Vitamin B12 182 03/18/20 13:25 TSH 1.07 uIU/ml (0.34-5.60) 03/18/20 13:25 Coronavirus (PCR) Negative (NOT DETECTD) 03/21/20 20:00 - Physical Exam Vitals and I&O: Vital Signs Temp 97.7 F 03/28/20 14:52 Pulse 76 03/28/20 14:52 Resp 19 03/28/20 14:52 BP 105/70 03/28/20 14:52 Pulse Ox 96 03/28/20 14:52 Intake & Output 03/27/20 03/28/20 03/28/20 18:59 06:59 18:59 Intake Total 335 669 5291 Balance 973 788 2210 Intake: Oral 963 053 6719 Other: # Voids 1 4 # Bowel Movements 0 0 Stool Characteristics Soft Soft Foamy Foamy Brown Brown Active Medications: Current Medications Acetaminophen (Tylenol) 650 mg PO Q4H PRN PRN Reason: Pain (Mild 1-3) Stop: 05/17/20 01:11 Last Admin: 03/27/20 21:06 Dose: 650 mg Acetaminophen (Tylenol) 650 mg PO Q4H PRN PRN Reason: temp above 100 Stop: 05/17/20 01:21 Last Admin: 03/19/20 21:11 Dose: 650 mg Al Hydrox/Mg Hydrox/Simethicone (Maalox) 30 ml PO Q4HR PRN PRN Reason: GI DISTRESS Stop: 05/17/20 01:11 Aripiprazole (Abilify) 5 mg PO DAILY STACI; Protocol Stop: 05/22/20 08:59 Last Admin: 03/28/20 09:35 Dose: 5 mg Lorazepam (Ativan) 0.5 mg PO Q4HR PRN; Protocol PRN Reason: Anxiety Stop: 04/17/20 01:11 Last Admin: 03/27/20 23:14 Dose: 0.5 mg Magnesium Hydroxide (Milk Of Magnesia) 30 ml PO HS PRN PRN Reason: Constipation Memantine (Namenda) 5 mg PO BID STACI Stop: 05/22/20 08:59 Last Admin: 03/28/20 16:55 Dose: 5 mg Multivitamins/Vitamin C (Theragran) 1 tab PO DAILY STACI Stop: 05/17/20 08:59 Last Admin: 03/28/20 09:35 Dose: 1 tab General: weak HEENT: NC/AT, PERRLA Neck: Supple Lungs: CTAB Cardiovascular: RRR, Normal S1, Normal S2 Abdomen: soft Extremities: clear Neurological: no change Internal Medicine Assmt/Plan - Assessment Assessment: 1 HTN 2. Kidney cancer - Plan Plan: continue dementia meds d/w r.n. reviewed complete medical records Nutritional Asmnt/Malnutr-PDOC - Dietary Evaluation Malnutrition Findings (Please click <Entered> for more info): Nutritional Asmnt/Malnutrition Start: 03/22/20 12: 56 Text: Status: Complete Freq: Protocol: Document 03/22/20 12:56 DENZEL (Rec: 03/22/20 13:00 DENZEL [id number]) Nutritional Asmnt/Malnutrition Patient General Information Nutritional Screening Moderate Risk Diagnosis Psychosis Pertinent Medical Hx/Surgical Hx Kidney cancer, HTN, Alzheimer s, Dementia Subjective Information Pt is a 75-year-old male admitted on 03/17 d/t agitation . Pt is eating an estimated 35 % of meals Per Meal/Nutrition Activity Record. Dietary is currently providing an estimated 2681 kcals and 124 gm Pro, per Pt PO intake this is providing an estimated 938 kcals and 43gm Pro to meet 61% kcal and 35% Pro needs. Per Meal/Nutrition Activity Record , pt. refused breakfast and lunch on 03/21. Pt. is eating 75% or less of meals and eats 50-100% of snacks. Adding Ensure Enlive BID to add calories and protein until pt. is meeting estimated nutritional needs. Anthropometrics HT: 510 WT: 135 LB (61.63 kg) BMI: 19.37 (Normal) GI/ Skin Integrity GI: WNL, Soft, Non-tender BM: 03/20 x1 I/O: 420/Not Noted Skin: Small superficial abrasion to Lt knee Jean Paul: 18 Diet Order: Regular Estimated Energy Needs: ( Geriatric, CBW) 2714-8966 kcals (25-30 kcals/ kg) 65-75 g Pro (1.0-1.2 g/kg) 8414-6828 ml (25-30 ml/kg) Current Diet Order/ Nutrition Support Regular Pertinent Medications Maalox (PRN), MOM (PRN), Theragran Pertinent Labs 03/18: Hgb 13.9 Nutritional Hx/Data Height 1.78 m Height (Calculated Centimeters) 177.8 Current Weight (lbs) 61.235 kg Weight (Calculated Kilograms) 61.2 Weight (Calculated Grams) 43797.0 [place] Body Weight 166 LB (75.45kg) % [place] Body Weight 81 Body Mass Index (BMI) 19.3 Weight Status Approriate GI Symptoms GI Symptoms None Last BM 03/20 x1 Skin Integrity/Comment: Small superficial abrasion to Lt knee Jean Paul: 18 Current %PO Poor (25-49%) Estimated Nutritional Goals BEE in Kcals: Using Current wt Calories/Kcals/Kg 25-30 Kcals Calculated 1141-5282 Protein: Using Current wt Protein g/k.0-1.2 Protein Calculated 65-75 Fluid: ml 5532-3017 ml (25-30 ml/kg) Nutritional Problem 1. Problem Problem Inadequate oral intake Etiology r/t Alzheimers/Dementia causing confusion Signs/Symptoms: aeb pt. eating an estimated 35 % of meals with refusal of meals per Meal/Nutrition Activity Record and WELDER/FABRICATOR report . Malnutrition Related to Morbid Obesity Malnutrition related to morbid obesity No Intervention/Recommendation Comments 1. Continue regular diet as tolerated. 2. Add Ensure Enlive BID. Expected Outcomes/Goals Expected Outcomes/Goals 1. PO intake to meet >75% of estimated nutritional needs. 2. Monitor PO intake, wt, nutrition related labs, and skin integrity to trend WNL. 3. F/U as moderate risk in 3-5 days, 03/25-03/27.
--- NOTE | 2020-03-28 21:27 | Progress Notes ---
DATE: 03/28/2020 FOLLOWUP PROGRESS NOTE Case was discussed with staff of the patient, reviewed records. The patient continues to be demented, confused, continues to be unpredictable, impulsive, needing redirection. Continues to be rambling. He is compliant with the medication with no side effects, no sedation, no nausea and no extrapyramidal symptoms. We will continue to work with the patient in group therapy, milieu therapy, and adjust the medications as needed. JOB# [id number]
[2020-03-29] MEDS: Multivitamin Tab PO SCH (09:57)
--- NOTE | 2020-03-29 18:09 | Internal Medicine Prog Note ---
Internal Medicine Subjective - Subjective Service Date: 03/29/20 Patient seen and examined:: without staff Patient is:: awake, non-interactive Per staff patient has:: no adverse event, no episodes of fall Internal Medicine Objective - Results Result Diagrams: 03/18/20 13:25 Recent Labs: Laboratory Last Values WBC 6.2 K/uL (4.8-10.8) 03/18/20 13:25 RBC 4.08 MIL/uL (4.2-6.2) L 03/18/20 13:25 Hgb 13.9 g/dL (14.0-18.0) L 03/18/20 13:25 Hct 42.1 % (36-54) 03/18/20 13:25 MCV 103 fL (79.0-98.0) H 03/18/20 13:25 MCH 34 pg (27-31) H 03/18/20 13:25 MCHC 33 % (32-36) 03/18/20 13:25 RDW 12.6 % (9.0-15.0) 03/18/20 13:25 Plt Count 133 K/uL (130-430) 03/18/20 13:25 MPV 9.4 fl (7.4-10.4) 03/18/20 13:25 Neut % (Auto) 71.4 % (40-70) H 03/18/20 13:25 Lymph % (Auto) 22.4 % (20.5-51.5) 03/18/20 13:25 [place] % (Auto) 5.1 % (1.7-9.3) 03/18/20 13:25 Eos % (Auto) 0.4 % (0-4) 03/18/20 13:25 Baso % (Auto) 0.7 % (0.0-2.0) 03/18/20 13:25 Neut # (Auto) 4.4 K/uL (1.8-7.7) 03/18/20 13:25 Lymph # (Auto) 1.4 K/uL (1.0-5.5) 03/18/20 13:25 [place] # (Auto) 0.4 K/uL (0.0-1.0) 03/18/20 13:25 Eos # (Auto) 0.0 K/uL (0.0-0.4) 03/18/20 13:25 Baso # (Auto) 0.0 K/uL (0.0-0.2) 03/18/20 13:25 Triglycerides 39 mg/dL (30-150) 03/18/20 13:25 Cholesterol 159 mg/dL (<200) 03/18/20 13:25 LDL Cholesterol 95 mg/dL (0-129) 03/18/20 13:25 HDL Cholesterol 57 mg/dL (>45) 03/18/20 13:25 Vitamin B12 182 03/18/20 13:25 TSH 1.07 uIU/ml (0.34-5.60) 03/18/20 13:25 Coronavirus (PCR) Negative (NOT DETECTD) 03/21/20 20:00 - Physical Exam Vitals and I&O: Vital Signs Temp 98.7 F 03/29/20 14:50 Pulse 68 03/29/20 14:50 Resp 20 03/29/20 14:50 BP 132/71 03/29/20 14:50 Pulse Ox 97 03/29/20 14:50 Intake & Output 03/28/20 03/29/20 03/29/20 18:59 06:59 18:59 Intake Total 1000 120 600 Balance 1000 120 600 Intake: Oral 1000 120 600 Other: # Voids 4 3 3 # Bowel Movements 0 0 0 Stool Characteristics Soft Soft Foamy Foamy Brown Brown Active Medications: Current Medications Acetaminophen (Tylenol) 650 mg PO Q4H PRN PRN Reason: Pain (Mild 1-3) Stop: 05/17/20 01:11 Last Admin: 03/27/20 21:06 Dose: 650 mg Acetaminophen (Tylenol) 650 mg PO Q4H PRN PRN Reason: temp above 100 Stop: 05/17/20 01:21 Last Admin: 03/19/20 21:11 Dose: 650 mg Al Hydrox/Mg Hydrox/Simethicone (Maalox) 30 ml PO Q4HR PRN PRN Reason: GI DISTRESS Stop: 05/17/20 01:11 Aripiprazole (Abilify) 5 mg PO DAILY STACI; Protocol Stop: 05/22/20 08:59 Last Admin: 03/29/20 09:57 Dose: 5 mg Lorazepam (Ativan) 0.5 mg PO Q4HR PRN; Protocol PRN Reason: Anxiety Stop: 04/17/20 01:11 Last Admin: 03/29/20 04:13 Dose: 0.5 mg Magnesium Hydroxide (Milk Of Magnesia) 30 ml PO HS PRN PRN Reason: Constipation Memantine (Namenda) 5 mg PO BID STACI Stop: 05/22/20 08:59 Last Admin: 03/29/20 17:46 Dose: 5 mg Multivitamins/Vitamin C (Theragran) 1 tab PO DAILY STACI Stop: 05/17/20 08:59 Last Admin: 03/29/20 09:57 Dose: 1 tab General: weak HEENT: NC/AT, PERRLA Neck: Supple Lungs: CTAB Cardiovascular: RRR, Normal S1, Normal S2 Abdomen: soft Extremities: clear Neurological: no change Internal Medicine Assmt/Plan - Assessment Assessment: 1 HTN 2. Kidney cancer - Plan Plan: continue dementia meds d/w r.n. reviewed complete medical records Nutritional Asmnt/Malnutr-PDOC - Dietary Evaluation Malnutrition Findings (Please click <Entered> for more info): Nutritional Asmnt/Malnutrition Start: 03/22/20 12: 56 Text: Status: Complete Freq: Protocol: Document 03/22/20 12:56 DENZEL (Rec: 03/22/20 13:00 DENZEL [id number]) Nutritional Asmnt/Malnutrition Patient General Information Nutritional Screening Moderate Risk Diagnosis Psychosis Pertinent Medical Hx/Surgical Hx Kidney cancer, HTN, Alzheimer s, Dementia Subjective Information Pt is a 75-year-old male admitted on 03/17 d/t agitation . Pt is eating an estimated 35 % of meals Per Meal/Nutrition Activity Record. Dietary is currently providing an estimated 2681 kcals and 124 gm Pro, per Pt PO intake this is providing an estimated 938 kcals and 43gm Pro to meet 61% kcal and 35% Pro needs. Per Meal/Nutrition Activity Record , pt. refused breakfast and lunch on 03/21. Pt. is eating 75% or less of meals and eats 50-100% of snacks. Adding Ensure Enlive BID to add calories and protein until pt. is meeting estimated nutritional needs. Anthropometrics HT: 510 WT: 135 LB (61.63 kg) BMI: 19.37 (Normal) GI/ Skin Integrity GI: WNL, Soft, Non-tender BM: 7/19 x1 I/O: 420/Not Noted Skin: Small superficial abrasion to Lt knee [place]: 18 Diet Order: Regular Estimated Energy Needs: ( Geriatric, CBW) 5888-3374 kcals (25-30 kcals/ kg) 65-75 g Pro (1.0-1.2 g/kg) 8197-5232 ml (25-30 ml/kg) Current Diet Order/ Nutrition Support Regular Pertinent Medications Maalox (PRN), MOM (PRN), Theragran Pertinent Labs 03/18: Hgb 13.9 Nutritional Hx/Data Height 1.78 m Height (Calculated Centimeters) 177.8 Current Weight (lbs) 61.235 kg Weight (Calculated Kilograms) 61.2 Weight (Calculated Grams) 37931.0 [place] Body Weight 166 LB (75.45kg) % [place] Body Weight 81 Body Mass Index (BMI) 19.3 Weight Status Approriate GI Symptoms GI Symptoms None Last BM 03/20 x1 Skin Integrity/Comment: Small superficial abrasion to Lt knee [place]: 18 Current %PO Poor (25-49%) Estimated Nutritional Goals BEE in Kcals: Using Current wt Calories/Kcals/Kg 25-30 Kcals Calculated 6042-1320 Protein: Using Current wt Protein g/k.0-1.2 Protein Calculated 65-75 Fluid: ml 8901-1109 ml (25-30 ml/kg) Nutritional Problem 1. Problem Problem Inadequate oral intake Etiology r/t Alzheimers/Dementia causing confusion Signs/Symptoms: aeb pt. eating an estimated 35 % of meals with refusal of meals per Meal/Nutrition Activity Record and VASCULAR ULTRASOUND TECHNOLOGIST report . Malnutrition Related to Morbid Obesity Malnutrition related to morbid obesity No Intervention/Recommendation Comments 1. Continue regular diet as tolerated. 2. Add Ensure Enlive BID. Expected Outcomes/Goals Expected Outcomes/Goals 1. PO intake to meet >75% of estimated nutritional needs. 2. Monitor PO intake, wt, nutrition related labs, and skin integrity to trend WNL. 3. F/U as moderate risk in 3-5 days, 03/25-03/27.
--- NOTE | 2020-03-29 20:37 | Progress Notes ---
DATE: 03/29/2020 Case was discussed with staff of the patient, reviewed records. The patient continues to have poor insight, unpredictable, impulsive, confused, unable to make safe plan for self-care, pacing the unit, rambling speech. No side effects with the medication, no sedation, no nausea, no extrapyramidal symptoms. We will continue the patient in group therapy, milieu therapy, and adjust medication as needed. JOB# [id number]
--- NOTE | 2020-03-30 07:12 | Progress Notes ---
DATE: SUBJECTIVE: Chart reviewed and the patient interviewed. Also discussed the patient's condition with the staff and reviewed records and labs. The patient is still confused and he is still wandering into other patient's room. The patient also is still restless and still needs lots of redirections with difficulty redirecting him. The patient also is still at times demanding. Otherwise, the patient is compliant with taking his medications with no side effects of medications. ASSESSMENT: The patient is still aggressive and agitated and confused. TREATMENT PLAN: We will continue to monitor behavior and condition closely. Also, we will increase Abilify to 10 mg every day and also increase Namenda to 10 mg twice a day. Also, we will get COVID-19 test in preparations for his placement and discharge from the hospital. Also, continue to work on his impulsivity and his irritability. JOB# [id number]
[2020-03-30] MEDS: Multivitamin Tab PO SCH (08:45)
--- NOTE | 2020-03-30 14:15 | Internal Medicine Prog Note ---
Internal Medicine Subjective - Subjective Service Date: 03/30/20 Patient seen and examined:: without staff Patient is:: awake, non-interactive Per staff patient has:: no adverse event, no episodes of fall Internal Medicine Objective - Results Result Diagrams: 03/18/20 13:25 Recent Labs: Laboratory Last Values WBC 6.2 K/uL (4.8-10.8) 03/18/20 13:25 RBC 4.08 MIL/uL (4.2-6.2) L 03/18/20 13:25 Hgb 13.9 g/dL (14.0-18.0) L 03/18/20 13:25 Hct 42.1 % (36-54) 03/18/20 13:25 MCV 103 fL (79.0-98.0) H 03/18/20 13:25 MCH 34 pg (27-31) H 03/18/20 13:25 MCHC 33 % (32-36) 03/18/20 13:25 RDW 12.6 % (9.0-15.0) 03/18/20 13:25 Plt Count 133 K/uL (130-430) 03/18/20 13:25 MPV 9.4 fl (7.4-10.4) 03/18/20 13:25 Neut % (Auto) 71.4 % (40-70) H 03/18/20 13:25 Lymph % (Auto) 22.4 % (20.5-51.5) 03/18/20 13:25 [place] % (Auto) 5.1 % (1.7-9.3) 03/18/20 13:25 Eos % (Auto) 0.4 % (0-4) 03/18/20 13:25 Baso % (Auto) 0.7 % (0.0-2.0) 03/18/20 13:25 Neut # (Auto) 4.4 K/uL (1.8-7.7) 03/18/20 13:25 Lymph # (Auto) 1.4 K/uL (1.0-5.5) 03/18/20 13:25 [place] # (Auto) 0.4 K/uL (0.0-1.0) 03/18/20 13:25 Eos # (Auto) 0.0 K/uL (0.0-0.4) 03/18/20 13:25 Baso # (Auto) 0.0 K/uL (0.0-0.2) 03/18/20 13:25 Triglycerides 39 mg/dL (30-150) 03/18/20 13:25 Cholesterol 159 mg/dL (<200) 03/18/20 13:25 LDL Cholesterol 95 mg/dL (0-129) 03/18/20 13:25 HDL Cholesterol 57 mg/dL (>45) 03/18/20 13:25 Vitamin B12 182 03/18/20 13:25 TSH 1.07 uIU/ml (0.34-5.60) 03/18/20 13:25 Coronavirus (PCR) Negative (NOT DETECTD) 03/21/20 20:00 - Physical Exam Vitals and I&O: Vital Signs Temp 97.9 F 03/30/20 05:45 Pulse 65 03/30/20 05:45 Resp 19 03/30/20 05:45 BP 144/84 03/30/20 05:45 Pulse Ox 97 03/30/20 05:45 Intake & Output 03/29/20 03/30/20 03/30/20 18:59 06:59 18:59 Intake Total 600 120 Balance 600 120 Intake: Oral 600 0 Other 120 Other: # Voids 3 3 # Bowel Movements 0 0 Stool Characteristics Soft Soft Foamy Foamy Brown Brown Active Medications: Current Medications Acetaminophen (Tylenol) 650 mg PO Q4H PRN PRN Reason: Pain (Mild 1-3) Stop: 05/17/20 01:11 Last Admin: 03/27/20 21:06 Dose: 650 mg Acetaminophen (Tylenol) 650 mg PO Q4H PRN PRN Reason: temp above 100 Stop: 05/17/20 01:21 Last Admin: 03/19/20 21:11 Dose: 650 mg Al Hydrox/Mg Hydrox/Simethicone (Maalox) 30 ml PO Q4HR PRN PRN Reason: GI DISTRESS Stop: 05/17/20 01:11 Aripiprazole (Abilify) 10 mg PO DAILY STACI; Protocol Stop: 05/29/20 08:59 Last Admin: 03/30/20 09:28 Dose: 10 mg Lorazepam (Ativan) 0.5 mg PO Q4HR PRN; Protocol PRN Reason: Anxiety Stop: 04/17/20 01:11 Last Admin: 03/30/20 03:45 Dose: 0.5 mg Magnesium Hydroxide (Milk Of Magnesia) 30 ml PO HS PRN PRN Reason: Constipation Memantine (Namenda) 10 mg PO BID STACI Stop: 05/29/20 08:59 Last Admin: 03/30/20 09:28 Dose: 10 mg Multivitamins/Vitamin C (Theragran) 1 tab PO DAILY STACI Stop: 05/17/20 08:59 Last Admin: 03/30/20 08:45 Dose: 1 tab General: weak HEENT: NC/AT, PERRLA Neck: Supple Lungs: CTAB Cardiovascular: RRR, Normal S1, Normal S2 Abdomen: soft Extremities: clear Neurological: no change Internal Medicine Assmt/Plan - Assessment Assessment: 1 HTN 2. Kidney cancer - Plan Plan: continue dementia meds d/w r.n. reviewed complete medical records Nutritional Asmnt/Malnutr-PDOC - Dietary Evaluation Malnutrition Findings (Please click <Entered> for more info): Nutritional Asmnt/Malnutrition Start: 03/22/20 12: 56 Text: Status: Complete Freq: Protocol: Document 03/22/20 12:56 DENZEL (Rec: 03/22/20 13:00 DENZEL [email or web address] [id number]) Nutritional Asmnt/Malnutrition Patient General Information Nutritional Screening Moderate Risk Diagnosis Psychosis Pertinent Medical Hx/Surgical Hx Kidney cancer, HTN, Alzheimer s, Dementia Subjective Information Pt is a 75-year-old male admitted on 03/17 d/t agitation . Pt is eating an estimated 35 % of meals Per Meal/Nutrition Activity Record. Dietary is currently providing an estimated 2681 kcals and 124 gm Pro, per Pt PO intake this is providing an estimated 938 kcals and 43gm Pro to meet 61% kcal and 35% Pro needs. Per Meal/Nutrition Activity Record , pt. refused breakfast and lunch on 03/21. Pt. is eating 75% or less of meals and eats 50-100% of snacks. Adding Ensure Enlive BID to add calories and protein until pt. is meeting estimated nutritional needs. Anthropometrics HT: 510 WT: 135 LB (61.63 kg) BMI: 19.37 (Normal) GI/ Skin Integrity GI: WNL, Soft, Non-tender BM: 03/20 x1 I/O: 420/Not Noted Skin: Small superficial abrasion to Lt knee [place]: 18 Diet Order: Regular Estimated Energy Needs: ( Geriatric, CBW) 2308-7218 kcals (25-30 kcals/ kg) 65-75 g Pro (1.0-1.2 g/kg) 4553-5759 ml (25-30 ml/kg) Current Diet Order/ Nutrition Support Regular Pertinent Medications Maalox (PRN), MOM (PRN), Theragran Pertinent Labs 03/18: Hgb 13.9 Nutritional Hx/Data Height 1.78 m Height (Calculated Centimeters) 177.8 Current Weight (lbs) 61.235 kg Weight (Calculated Kilograms) 61.2 Weight (Calculated Grams) 60541.0 [place] Body Weight 166 LB (75.45kg) % [place] Body Weight 81 Body Mass Index (BMI) 19.3 Weight Status Approriate GI Symptoms GI Symptoms None Last BM 03/20 x1 Skin Integrity/Comment: Small superficial abrasion to Lt knee [place]: 18 Current %PO Poor (25-49%) Estimated Nutritional Goals BEE in Kcals: Using Current wt Calories/Kcals/Kg 25-30 Kcals Calculated 8614-4270 Protein: Using Current wt Protein g/k.0-1.2 Protein Calculated 65-75 Fluid: ml 0815-6904 ml (25-30 ml/kg) Nutritional Problem 1. Problem Problem Inadequate oral intake Etiology r/t Alzheimers/Dementia causing confusion Signs/Symptoms: aeb pt. eating an estimated 35 % of meals with refusal of meals per Meal/Nutrition Activity Record and CUSTOMER SERVICE ASSOCIATE report . Malnutrition Related to Morbid Obesity Malnutrition related to morbid obesity No Intervention/Recommendation Comments 1. Continue regular diet as tolerated. 2. Add Ensure Enlive BID. Expected Outcomes/Goals Expected Outcomes/Goals 1. PO intake to meet >75% of estimated nutritional needs. 2. Monitor PO intake, wt, nutrition related labs, and skin integrity to trend WNL. 3. F/U as moderate risk in 3-5 days, 03/25-03/27.
[2020-03-31] MEDS: Multivitamin Tab PO SCH (08:31)
== END 2020-03-31 15:45 | DRG 57 ==
LOC: GERO 23:00
PROVIDERS: ADMIT Psychiatry & Neurology Psychiatry; ATTEND Psychiatry & Neurology Psychiatry
DX: G30.9 Alzheimer's disease, unspecified (principal); F02.80 Dementia in other diseases classified elsewhere, unspecified severity, without behavioral disturbance, psychotic disturbance, mood disturbance, and anxiety; I10 Essential (primary) hypertension; Z20.828 Contact with and (suspected) exposure to other viral communicable diseases; Z85.528 Personal history of other malignant neoplasm of kidney
CPT/HCPCS: 36415-UA; 80061-TC; 82607-90; 83036-90; 84443-TC; 85025-TC; G0410; U0003-CS; Z7610